=== PATIENT | male | born 1945 | race Hispanic/Latino ===

== ENCOUNTER 2018-11-18 19:10 | Emergency (ER) | payer MEDICARE, BC ==
[2018-11-18 20:30] VITALS: BMI 23.7
--- NOTE | 2018-11-18 20:30 | ED PDOC ---
Arrival/HPI - General Time Seen by Provider: 11/18/18 19:42 Historian: Patient - History of Present Illness Narrative History of Present Illness (Text): 11/18/18 20:29 73 year old male smoker, with no significant past medical history, presents to the emergency department with abscess-like wound to the left leg, for 1 week. Patient informs he is unsure how it started, but has been gardening recently. Patient denies any discharge from the wound. Patient states it is painful to touch. pt denies any pain with ROM of knee. Patient denies any fevers, chills, headache, dizziness, chest pain, shortness of breath, dyspnea on exertion, cough, abdominal pain, nausea, vomiting, diarrhea, back pain, neck pain, or any other complaints. PMD: Dr. Kwesi Stern Time/Duration: 1 week Symptom Onset: Gradual Symptom Course: Unchanged Quality: Aching Severity Level: Mild Activities at Onset: Light Context: Home Past Medical History - Provider Review Nursing Documentation Reviewed: Yes - Travel History Have you recently traveled outside [place] w/in the past 3 mons?: No - Infectious Disease Hx of Infectious Diseases: MRSA - Cardiac Hx Pacemaker: No - Neurological Hx Paralysis: No - Hematological/Oncological Hx Blood Transfusions: No Hx Blood Transfusion Reaction: No - Musculoskeletal/Rheumatological Hx Musculoskeletal Disorders: No - Psychiatric Hx Emotional Abuse: No Hx Physical Abuse: No Hx Substance Use: No - Anesthesia Hx Anesthesia Reactions: No Hx Malignant Hyperthermia: No - Suicidal Assessment Feels Threatened In Home Enviroment: No Family/Social History - Physician Review Nursing Documentation Reviewed: Yes Family/Social History: No Known Family HX Smoking Status: Heavy Smoker > 10 Cigarettes Daily Hx Alcohol Use: No Hx Substance Use: No Allergies/Home Meds Allergies/Adverse Reactions: Allergies No Known Allergies Allergy (Verified 11/18/18 20:30) Home Medications: Home Meds Medication Instructions Recorded Confirmed Esomeprazole Magnesium [Nexium] 40 mg PO DAILY 11/13/11 11/13/11 Fish Oil 1,000 iu PO DAILY 11/13/11 11/13/11 Simvastatin 40 mg PO DAILY 11/13/11 11/13/11 Temazepam 15 mg PO HS 11/13/11 11/13/11 Zolpidem Tartrate [Zolpidem] 10 mg PO HS 11/13/11 11/13/11 Review of Systems - Physician Review All systems were reviewed & negative as marked: Yes - Review of Systems Constitutional: absent: Fatigue, Fevers, Night Sweats Respiratory: absent: SOB, Cough Cardiovascular: absent: Chest Pain, Palpitations, YUAN Gastrointestinal: absent: Abdominal Pain, Diarrhea, Nausea, Vomiting Musculoskeletal: absent: Back Pain, Neck Pain, Joint Swelling Skin: Abscess, Cellulitis. absent: Pruritis Neurological: absent: Headache, Dizziness Psychiatric: absent: Anxiety, Depression Physical Exam Vital Signs Reviewed: Yes Temperature: Afebrile Blood Pressure: Normal Pulse: Regular Respiratory Rate: Normal Appearance: Positive for: Well-Appearing, Non-Toxic, Comfortable Pain Distress: None Mental Status: Positive for: Alert and Oriented X 3 - Systems Exam Head: Present: Atraumatic Conjunctiva: Present: Normal Mouth: Present: Moist Mucous Membranes Neck: Present: Normal Range of Motion Respiratory/Chest: Present: Clear to Auscultation, Good Air Exchange. No: Respiratory Distress, Accessory Muscle Use Cardiovascular: Present: Regular Rate and Rhythm, Normal S1, S2. No: Murmurs Back: Present: Normal Inspection Upper Extremity: Present: Normal Inspection. No: Cyanosis, Edema Lower Extremity: Present: Normal Inspection, Normal ROM (Full ROM to the Left knee and ankle), Tenderness (Some localized swelling and tenderness to the area of abscess. + induration, no fluctuance. ), Swelling, Erythema, Neurovascularly Intact, Capillary Refill < 2 s. No: Edema, Deformity Neurological: Present: Speech Normal Skin: Present: Warm, Dry, Erythematous, Abscess (central scab with approx 5cm of surrounding erythema, just inferior and lateral to the left knee; Small amount of purulent discharge to the central crusting area, no fluctuance) Psychiatric: Present: Alert, Oriented x 3 Medical Decision Making ED Course and Treatment: 11/18/18 20:45 Impression: 73 year old male presents with abscess-like wound. Plan: -- CMP -- CBC -- Keflex -- Bactrim -- Reassess and disposition Prior Visits: Notes and results from previous visits were reviewed. Progress Notes: 11/18/18 20:47 Pt refusing to have blood work and remain in the hospital for abscess/cellulitis. area of erythema outlined with marking pain. pt started on bactrim and keflex. pt was advised that he he should remain in the hospital for blood work and IV antibiotics. Patient has refused to stay in the hospital. Patient has refused to have blood work. I advised the patient of risk of disability or worsening of symptoms including loss of limb and sepsis. Patient has been advised to not leave the emergency room but has decided to go AGAINST MEDICAL ADVICE. The patient possesses capacity to make decisions and has voiced understanding to all my warnings of potential worsening of the condition for which medical care was sought. I have discussed all known and potential risks and consequences to the patient leaving AGAINST MEDICAL ADVICE. Patient is leaving against medical advise. AMA form signed. witness by JESSICA Bateman. Patient was advised immediate return if he wishes to continue his care. He was advised immediate return if erythema extends beyond the marking pen outline. Patient was advised to take antibiotics as prescribed follow-up with a primary care physician and surgeon within the next 2 days. Impression: Abscess, cellulitis of leg Patient has left the hospital AGAINST MEDICAL ADVICE. Return if you wish to continue your care Bactrim 1 tablet twice daily x7 days Keflex 1 capsule 4 times daily x7 days Apply warm compresses frequently Follow up with primary care physician within the next 2 days. follow up with the surgeon within the next 2 days. Return immediately if symptoms worsen persist or if new symptoms develop: high fevers, increasing pain, increasing redness, swelling, or if any other concerning symptoms develop. - Scribe Statement The provider has reviewed the documentation as recorded by the Scribe Len Huddleston All medical record entries made by the Scribe were at my direction and personally dictated by me. I have reviewed the chart and agree that the record accurately reflects my personal performance of the history, physical exam, medical decision making, and the department course for this patient. I have also personally directed, reviewed, and agree with the discharge instructions and disposition. Disposition/Present on Arrival - Present on Arrival Any Indicators Present on Arrival: No History of DVT/PE: No History of Uncontrolled Diabetes: No Urinary Catheter: No History of Decub. Ulcer: No - Disposition Have Diagnosis and Disposition been Completed?: Yes Diagnosis: Abscess of leg, Cellulitis Disposition: AGAINST MEDICAL ADVICE Disposition Time: 20:47 Patient Plan: Other (AMA) Patient Problems: Current Active Problems Problem Status Onset Abscess of leg Acute Cellulitis Acute Condition: UNKNOWN Discharge Instructions (ExitCare): Cellulitis (ED), Skin Abscess, Cellulitis (Skin Infection), Adult (DC) Additional Instructions: Return if you wish to continue your care Bactrim 1 tablet twice daily x7 days Keflex 1 capsule 4 times daily x7 days Apply warm compresses frequently Follow up with primary care physician within the next 2 days. follow up with the surgeon within the next 2 days. Return immediately if symptoms worsen persist or if new symptoms develop: high fevers, increasing pain, increasing redness, swelling, or if any other concerning symptoms develop. Prescriptions: Cephalexin [Keflex] 500 mg PO QID #28 capsule Mupirocin 2% Oint UD [Bactroban Ointment] 1 applic EXT TID #1 ea Sulfamethoxazole/Trimethoprim [Bactrim DS 800 mg-160 mg] 1 tab PO BID #14 tab Referrals: Jake Stern MD [Family Provider] - Follow up with primary Moisés Delacruz MD [Staff Provider] - Follow up with primary Forms: [facility] (Maori), WORK NOTE
[2018-11-18] MEDS ORDERED: Tmp-Smz 800 mg-160 mg DS Tab PO STA (20:34)
[2018-11-18 20:40] VITALS: BP 106/42; PULSE 89; RESP 18; O2SAT 97
[2018-11-18 20:44] VITALS: TEMP 97.6
== END 2018-11-18 21:24 | disposition left against medical advice (07) ==
LOC: ED 19:10
DX: L02.416 Cutaneous abscess of left lower limb (principal); L03.116 Cellulitis of left lower limb

== ENCOUNTER 2018-11-19 14:13 | Inpatient (IN) | payer MEDICARE, BC ==
[2018-11-19 14:16] VITALS: BMI 26.6
--- NOTE | 2018-11-19 15:39 | ED PDOC ---
Arrival/HPI - General Chief Complaint: Lower Extremity Problem/Injury Time Seen by Provider: 11/19/18 14:26 Historian: Patient - History of Present Illness Narrative History of Present Illness (Text): 11/19/18 15:39 A 73 year old male, whose past medical history includes MRSA and COPD, presents to the emergency department complaining of left lower leg swelling and redness for approximately 8 days. Patient reports he was seen here last night. Notes he was seen by Dr. Stern today and was instructed to be evaluated in the ER for possible admission. Patient notes also experiencing associated bone pain near the redness on left leg, however denies any fever,calf pain, or any other complaints at this time. PMD: Dr. Stern Past Medical History - Provider Review Nursing Documentation Reviewed: Yes - Infectious Disease Hx of Infectious Diseases: MRSA - Cardiac Hx Pacemaker: No - Pulmonary Hx Chronic Obstructive Pulmonary Disease (COPD): Yes - Neurological Hx Paralysis: No - Hematological/Oncological Hx Blood Transfusions: No Hx Blood Transfusion Reaction: No - Musculoskeletal/Rheumatological Hx Musculoskeletal Disorders: No - Psychiatric Hx Emotional Abuse: No Hx Physical Abuse: No Hx Substance Use: No - Surgical History Other/Comment: sx on hemorroid. hx MRSA - Anesthesia Hx Anesthesia: Yes Hx Anesthesia Reactions: No Hx Malignant Hyperthermia: No - Suicidal Assessment Feels Threatened In Home Enviroment: No Family/Social History - Physician Review Nursing Documentation Reviewed: Yes Family/Social History: No Known Family HX Smoking Status: Heavy Smoker > 10 Cigarettes Daily Hx Alcohol Use: No Hx Substance Use: No Allergies/Home Meds Allergies/Adverse Reactions: Allergies No Known Allergies Allergy (Verified 11/19/18 15:19) Home Medications: Home Meds Medication Instructions Recorded Confirmed Esomeprazole Magnesium [Nexium] 40 mg PO DAILY 11/13/11 11/13/11 Fish Oil 1,000 iu PO DAILY 11/13/11 11/13/11 Simvastatin 40 mg PO DAILY 11/13/11 11/13/11 Temazepam 15 mg PO HS 11/13/11 11/13/11 Zolpidem Tartrate [Zolpidem] 10 mg PO HS 11/13/11 11/13/11 Review of Systems - Physician Review All systems were reviewed & negative as marked: Yes - Review of Systems Constitutional: absent: Fevers Musculoskeletal: absent: Other (no calf pain) Skin: Other (swelling and redness to left lower leg) Physical Exam - Physical Exam Narrative Physical Exam (Text): Gen: VS reviewed, alert, well developed, well nourished, nontoxic, mild distress. ENT: normal pharynx. Eye: EOMI, PERRL. Neck: no JVD, supple, no adenopathy. CV: regular rate, regular rhythm, no rubs, no murmur, no gallops, S1, S2, pulses equal and strong. Pulm: no distress, clear to auscultation, no wheeze, no rhonchi, breath sounds equal, no rales. Abd: soft, nontender, no guarding, no rebound, no rigidity, normal bowel sounds. Ext: abscess to left lateral proximal tibia with surrounding cellulitic skin changes, mild tenderness and mild edema of left lower leg. Skin: good color, no rash, no cyanosis. Psych: responds appropriately to questions, normal affect. Neuro: oriented x 3, CN2-12 intact grossly, motor intact, sensation intact. Vital Signs Temp Pulse Resp BP Pulse Ox 11/19/18 14:15 98.4 F 95 H 18 123/82 97 Medical Decision Making ED Course and Treatment: 11/19/18 15:45 Impression: 73 year old male with left lower leg swelling and redness. Plan: -- EKG -- Labs -- Lower Extremity Ultrasound -- Venous Blood Gas -- Tibia Fibula Left X-Ray -- Blood Culture -- Vancomycin -- Reassess and disposition Prior Visits: Notes and results from previous visits were reviewed. Patient was last seen here in the emergency department on 11/18/2018 for abscess-like wound to the left leg. Patient left against medical advice. Progress Notes: 11/19/18 18:[address] ren, patient to be admitted for abscess and cellulitis of the left leg. with the hx mrsa, it would be prudent to admit for iv abx and consider surgical consultation for potential I&D. patient remained stable throughout ED course. - EKG Interpretation EKG Interpretation (Text): 11/19/18 16:49 ekg my read: nsr at 85 bpm, nml qrs, nml axis, no acute sttw abn Interpreted by ED Physician: Yes - Scribe Statement The provider has reviewed the documentation as recorded by the Miguel Ángel Clemons Provider Scribe Attestation: All medical record entries made by the Miguel Ángel were at my direction and personally dictated by me. I have reviewed the chart and agree that the record accurately reflects my personal performance of the history, physical exam, medical decision making, and the department course for this patient. I have also personally directed, reviewed, and agree with the discharge instructions and disposition. Disposition/Present on Arrival - Present on Arrival Any Indicators Present on Arrival: No History of DVT/PE: No History of Uncontrolled Diabetes: No Urinary Catheter: No History of Decub. Ulcer: No History Surgical Site Infection Following: None - Disposition Have Diagnosis and Disposition been Completed?: Yes Diagnosis: Cellulitis and abscess of left leg Disposition: HOSPITALIZED Disposition Time: 15:41 Patient Plan: Admission Condition: STABLE Discharge Instructions (ExitCare): Cellulitis (ED) Referrals: PCP,NO [Primary Care Provider] - Follow up with primary Forms: [facility] (Burmese)
[2018-11-19] MEDS ORDERED: Vancomycin 500 mg Inj IVPB STA (15:43)
[2018-11-19 16:36] LABS: VENOUS BLOOD GAS BASE EXCESS 1.6 mmol/L (0.0-2.0); VENOUS BLOOD GAS PO2 48 mm/Hg (30-55); VENOUS BLOOD PH 7.31 (7.32-7.43)
[2018-11-19 16:37] LABS: BASO # 0.04 K/mm3 (0.0-2.0); BASO % 0.4 % (0.0-3.0); EOS # 0.2 (0.0-0.7); EOS % 1.9 % (1.5-5.0); HEMOGLOBIN 13.4 g/dL (14.0-18.0); LYMPH % 20.3 % (22.0-35.0); MEAN CORPUSCULAR HGB CONC 33.7 g/dl (31.0-37.0); MEAN PLATELET VOLUME 9.3 fl (7.0-11.0); MONO # 0.6 (0.1-0.6); MONO % 5.7 % (1.0-6.0); RBC 4.47 10^6/uL (3.5-6.1); RED CELL DISTRIBUTION WIDTH 12.6 % (11.5-14.5); WHITE BLOOD COUNT 10.1 10^3/uL (4.5-11.0)
[2018-11-19 16:40] LABS: ALB/GLOB RATIO 1.2 (1.1-1.8); ALBUMIN 3.9 g/dL (3.0-4.8); ALT/SGPT 20 U/L (7-56); AST/SGOT 22 U/L (17-59); BLOOD UREA NITROGEN 14 mg/dL (7-21); CALCIUM 9.4 mg/dL (8.4-10.5); GFR NON-AFRICAN AMERICAN > 60
--- NOTE | 2018-11-19 18:10 | US ---
PROCEDURE: Left lower extremity venous US HISTORY: Leg pain and swelling. Evaluate for DVT. PHYSICIAN(S): Len Scott MD. TECHNIQUE: Duplex sonography and color-flow Doppler with graded compression were used to evaluate the deep venous system of the left lower extremity. FINDINGS: The visualized deep venous system of the left lower extremity is sonographically normal and compressible. Normal wave forms and augmentation are seen. There is no sonographic evidence for deep venous thrombosis in the visualized segments of the left lower extremity. IMPRESSION: 1. No sonographic evidence for deep venous thrombosis in the visualized segments of the left lower extremity.
--- NOTE | 2018-11-19 19:09 | CARD ---
APPROVED REPORT Date of service: 11/19/2018 EKG Measurement Heart [id number] <Conclusion> Normal sinus rhythm Normal ECG
--- NOTE | 2018-11-19 21:21 | CP.PCM.CON ---
History of Present Illness - History of Present Illness History of Present Illness: General Surgery Dr. Delacruz 73 y/o M w/ PMHx COPD, BPH presents to the ED at the direction of his PMD, Dr. Barriga. Pt has a wound on his LLE x1wk. Pt presented to the ED yesterday, 11/18, for the same wound. At that time, pt did not want to be admitted and left the ED for follow up w/ PMD. Pt was seen by Dr. Barriga today and instructed the pt to come to the ED for further eval/treatment. Pt has never before had similar wounds/lesions. Pt is unaware of any recent trauma to the area. Pt admits to pain in LLE from knee to ankle, pain worse on anterior aspect. Pt denies F/C, CP, SOB, N/V. PMHx: see above Meds: reviewed in chart NKDA PSHx: RIHR, EGD, face lesion removal SHx: (+)tobacco, (-)Drug/EtOH FHx: noncontributory Review of Systems - Review of Systems All systems: reviewed and no additional remarkable complaints except (see HPI) Past Patient History - Infectious Disease Hx of Infectious Diseases: MRSA - Past Social History Smoking Status: Heavy Smoker > 10 Cigarettes Daily - CARDIAC Hx Pacemaker: No - PULMONARY Hx Chronic Obstructive Pulmonary Disease (COPD): Yes - NEUROLOGICAL Hx Paralysis: No - HEMATOLOGICAL/ONCOLOGICAL Hx Blood Transfusions: No Hx Blood Transfusion Reaction: No - INTEGUMENTARY Hx Dermatological Problems: Yes (PAST) Other/Comment: MRSA to L face in 2016, Patient received antibiotic therapy in nose and to L face - MUSCULOSKELETAL/RHEUMATOLOGICAL Hx Musculoskeletal Disorders: No - PSYCHIATRIC Hx Emotional Abuse: No Hx Physical Abuse: No Hx Substance Use: No - SURGICAL HISTORY Other/Comment: sx on hemorroid. hx MRSA - ANESTHESIA Hx Anesthesia: Yes Hx Anesthesia Reactions: No Hx Malignant Hyperthermia: No Meds Allergies/Adverse Reactions: Allergies Allergy/AdvReac Type Severity Reaction Status Date / Time No Known Allergies Allergy Verified 11/19/18 15:19 Physical Exam - Constitutional Appears: Non-toxic, No Acute Distress - Head Exam Head Exam: NORMAL INSPECTION - Eye Exam Eye Exam: Normal appearance - ENT Exam ENT Exam: Mucous Membranes Moist - Respiratory Exam Respiratory Exam: NORMAL BREATHING PATTERN. absent: Accessory Muscle Use, Respiratory Distress - Cardiovascular Exam Cardiovascular Exam: absent: Bradycardia, Tachycardia - GI/Abdominal Exam GI & Abdominal Exam: Soft. absent: Distended, Tenderness - Extremities Exam Additional comments: LLE w/ 2-3+ pitting edema 3cm area erythema w/ 1cm diameter crusted lesion no fluctuance palpable no drainage notes - Neurological Exam Neurological exam: Alert, Oriented x3 - Psychiatric Exam Psychiatric exam: Normal Affect, Normal Mood - Skin Skin Exam: Dry, Intact, Warm Results - Vital Signs Recent Vital Signs: Last Vital Signs Temp 98.4 F 11/19/18 14:15 Pulse 95 H 11/19/18 14:15 Resp 18 11/19/18 14:15 BP 123/82 11/19/18 14:15 Pulse Ox 97 11/19/18 14:15 - Labs Result Diagrams: 11/19/18 16:25 11/19/18 16:25 Labs: Laboratory Results - last 24 hr 11/19/18 11/19/18 11/19/18 16:25 16:25 16:25 WBC 10.1 RBC 4.47 Hgb 13.4 L Hct 39.8 L MCV 89.0 MCH 30.0 MCHC 33.7 RDW 12.6 Plt Count 315 MPV 9.3 Neut % (Auto) 71.7 H Lymph % (Auto) 20.3 L Hendry % (Auto) 5.7 Eos % (Auto) 1.9 Baso % (Auto) 0.4 Lymph # (Auto) 2.0 Hendry # (Auto) 0.6 Eos # (Auto) 0.2 Baso # (Auto) 0.04 Absolute Neuts (auto) 7.21 H pO2 48 VBG pH 7.31 L VBG pCO2 58.0 VBG HCO3 29.2 H VBG Total CO2 31.0 H VBG O2 Sat (Calc) 85.4 H VBG Base Excess 1.6 VBG Potassium 4.1 Sodium 141.0 142 Chloride 107.0 107 Glucose 98 Lactate 1.8 FiO2 21.0 Potassium 4.0 Carbon Dioxide 27 Anion Gap 12 BUN 14 Creatinine 1.0 Est GFR ( Amer) > 60 Est GFR (Non-Af Amer) > 60 Random Glucose 98 Calcium 9.4 Total Bilirubin 0.2 AST 22 ALT 20 Alkaline Phosphatase 73 Total Protein 7.1 Albumin 3.9 Globulin 3.2 Albumin/Globulin Ratio 1.2 Venous Blood Potassium 4.1 - Imaging and Cardiology Venous US Status: Image reviewed by me, Report reviewed by me LLE x-ray Status: Image reviewed by me Assessment & Plan - Assessment and Plan (Free Text) Assessment: 73 y/o M w/ LLE wound and surrounding cellulitis Plan: - IV abx - warm compresses - bacitracin - pain management - possible future I&D if fluctuance develops - monitor erythema for spreading Will discuss w/ Dr. Jayme Purdy PGY3
[2018-11-19] MEDS ORDERED: Vancomycin 1gm in NS 250ml 1 GM/250 ML BAG IVPB SCH ×2 (21:30→21:33)
[2018-11-20] MEDS: Piperacill/Tazo 4.5gm in NS 4.5 GM/100 ML BAG IVPB SCH ×4 (00:40→22:33)
[2018-11-20] MEDS: Vancomycin 1gm in NS 250ml 1 GM/250 ML BAG IVPB SCH ×2 (05:34→17:26)
--- NOTE | 2018-11-20 07:57 | CP.PCM.PN ---
Subjective - Date & Time of Evaluation Date of Evaluation: 11/20/18 Time of Evaluation: 06:45 - Subjective Subjective: General Surgery Dr. Delacruz Pt seen and examined @bedside. No acute events overnight. pt has no complaints this AM. LLE pain unchanged. denies F/C, N/V, CP, SOB. Objective - Vital Signs/Intake and Output Vital Signs (last 24 hours): Temp Pulse Resp BP Pulse Ox 97.9 F 88 20 132/60 97 11/19/18 22:00 11/19/18 22:00 11/20/18 01:48 11/19/18 22:00 11/19/18 22:00 - Medications Medications: Current Medications Acetaminophen (Tylenol 325mg Tab) 650 mg PO Q4H PRN PRN Reason: Pain, Mild (1-3) Bacitracin (Bacitracin) 1 gm TOP BID JOHN Vancomycin HCl (Vancomycin 1gm) 1 gm in 250 mls @ 167 mls/hr IVPB 0600,1800 JOHN; Protocol Last Admin: 11/20/18 05:34 Dose: 167 mls/hr Piperacillin Sod/Tazobactam Sod (Zosyn 4.5 Gm In Ns 100ml) 4.5 gm in 100 mls @ 25 mls/hr IVPB Q8 JOHN; Protocol Stop: 11/28/18 23:01 Last Admin: 11/20/18 05:34 Dose: 25 mls/hr Nicotine (Nicoderm Cq) 1 patch TD DAILY JOHN Last Admin: 11/20/18 00:05 Dose: 1 patch - Labs Labs: 11/19/18 16:25 11/19/18 16:25 - Constitutional Appears: Non-toxic, No Acute Distress - Head Exam Head Exam: NORMAL INSPECTION - Eye Exam Eye Exam: Normal appearance - ENT Exam ENT Exam: Mucous Membranes Moist - Respiratory Exam Respiratory Exam: NORMAL BREATHING PATTERN. absent: Accessory Muscle Use, Respiratory Distress - Cardiovascular Exam Cardiovascular Exam: absent: Bradycardia, Tachycardia - GI/Abdominal Exam GI & Abdominal Exam: Soft. absent: Distended - Extremities Exam Additional comments: Grossly unchanged: LLE w/ 2+ pitting edema 3cm area erythema w/ 1cm diameter central lesion no palpable fluctuance no drainage - Neurological Exam Neurological Exam: Alert, Awake, Oriented x3 - Psychiatric Exam Psychiatric exam: Normal Affect, Normal Mood - Skin Skin Exam: Dry, Intact, Warm Assessment and Plan - Assessment and Plan (Free Text) Assessment: 73 y/o M w/ LLE balderas wound and surrounding cellulitis Plan: - cont IV abx - warm compresses Q2 while awake - bacitracin Daily - keep leg elevated - possible future I&D if fluctuance develops - monitor erythema for spreading Pt discussed w/ Dr. Jayme Purdy PGY3
--- NOTE | 2018-11-20 08:40 | RAD ---
Date of service: 11/19/2018 PROCEDURE: Radiographs of the left tibia and fibula. HISTORY: proximal anterior tibia pain COMPARISON: None available. TECHNIQUE: Frontal and lateral views obtained. 2 views obtained. FINDINGS: BONES: No fracture or destructive lesion. Calcifications/calcification lateral to the lateral femoral condyle which may be related to sequela of prior trauma. JOINT SPACES: Unremarkable. OTHER FINDINGS: None. IMPRESSION: No demonstrated fracture or dislocation.
[2018-11-20] MEDS: Bacitracin Ointment 30 GM TUBE TOP SCH ×2 (10:10→17:25)
[2018-11-20 21:57] VITALS: RESP 18
--- NOTE | 2018-11-21 00:13 | HP ---
DATE OF EXAM: 11/20/2018 HISTORY OF PRESENT ILLNESS: The patient is a 73 years old white male who came to emergency room on 11/18/2018 because of increasing redness and a lump that was growing on his left leg that started 1 week ago. 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 He came to emergency, he was advised on 11/18/2018 to get admitted for IV antibiotic, but he left. He went to see Dr. Stern the next day who advised him to go to emergency room for IV antibiotics. Denies any fever or chills. He does complain of pain to the whole area including his knee. PAST MEDICAL HISTORY: Significant for; 1. COPD. 2. History of benign prostatic hypertrophy. ALLERGIES: HE IS NOT ALLERGIC TO ANY MEDICATION. MEDICATIONS: At home; he is on Ambien and temazepam as needed. He was on Bactroban. He is on simvastatin, Nexium and he was given Keflex. SOCIAL HISTORY: He lives with his . Used to be a heavy smoker. He still smokes almost 10 cigarettes a day. PHYSICAL EXAMINATION: GENERAL: He is awake and alert, able to communicate. VITAL SIGNS: He is afebrile. Pulse 81, respiration 20 and blood pressure 118/76. LUNGS: Bilateral fair airflow. No rhonchi or crackle. HEART: S1 and S2, audible. ABDOMEN: Soft and nontender. No rebound. No guarding. NEUROLOGIC: The patient is awake and alert, able to communicate. Ambulatory. EXTREMITIES: On his left upper leg, he has erythema of 10 to 15 cm that seemed to be regressing with central flat lesion. No fluctuation is noted. LABORATORY DATA: WBC is 10, hemoglobin 13, hematocrit 39 and platelets 315. Chemistry; sodium 142, potassium 4, chloride 107, CO2 of 27, BUN 14, creatinine 1, and blood sugar 98. LFT's are within normal limits. He had x-ray of the tib-fib done that is negative. He has leg Doppler that is unremarkable. ASSESSMENT: 1. Left leg cellulitis. 2. History of chronic obstructive pulmonary disease. 3. Hyperlipidemia. PLAN: Currently, the patient is on vancomycin and Zosyn. Analgesic as needed. He is being seen by Surgical team and ID. Komal Sorto MD [facility] # [id number]
--- NOTE | 2018-11-21 03:38 | CON ---
DATE: 11/20/2018 ROOM NUMBER: The patient was seen earlier today in 573, bed 1. CHIEF COMPLAINT: Right leg infection x1 week duration. HISTORY OF PRESENT ILLNESS: This is a 73-year-old male with past medical history significant for chronic obstructive lung disease, long-time smoker who continues to smoke, history of MRSA in the past, history of arthritis, and history of hemorrhoidectomy 15 years ago, who is admitted now with left leg skin infection. PAST MEDICAL HISTORY: Significant for facial MRSA infection, chronic obstructive lung disease, and arthritis. PAST SURGICAL HISTORY: Significant for hemorrhoidectomy 15 years ago. ALLERGIES: THE PATIENT HAS NO KNOWN ALLERGIES. REVIEW OF SYSTEMS: Reveals no fevers, no chills. No nausea, no vomiting. No abdominal pain, diarrhea. A 12-point review of systems performed. MEDICATIONS AT HOME: Reviewed. The patient had been on Bactrim at one time and Keflex. PHYSICAL EXAMINATION: VITAL SIGNS: The patient is in bed with a temperature of 98, blood pressure is 130/60, respiratory rate of 20, and a heart rate of 95. HEENT: Unremarkable. NECK: Supple. LUNGS: Have decreased breath sounds: HEART: Normal S1, S2. ABDOMEN: Soft, nontender. EXTREMITIES: Examination of the leg reveals the patient's left lower extremity has erythema with central abscess. LABORATORY EXAMINATION: Reveals a white count of 10,000. Chemistries are noted and reviewed. Microbiology is pending. Review of orders reveals that the patient had blood and wound cultures and was started on vancomycin and Zosyn. ASSESSMENT AND PLAN: A 73-year-old male with a left leg cellulitis with an abscess formation, most likely consistent with an Methicillin-resistant Staphylococcus aureus. We would recommend incision and drainage and complete with p.o. Bactrim upon discharge after incision and drainage. Double strength Bactrim 1 tablet p.o. b.i.d. times 3-5 days. Braulio Mitchell MD
[2018-11-21] MEDS: Piperacill/Tazo 4.5gm in NS 4.5 GM/100 ML BAG IVPB SCH (05:56)
[2018-11-21] MEDS: Vancomycin 1gm in NS 250ml 1 GM/250 ML BAG IVPB SCH (05:56)
--- NOTE | 2018-11-21 06:19 | CP.PCM.PN ---
Subjective - Date & Time of Evaluation Date of Evaluation: 11/21/18 Time of Evaluation: 07:05 - Subjective Subjective: General Surgery Pt seen and examined. No acute issues overnight. LLE pain improving. No new complaints. Afebrile. Scab came off and had some small amount of bleeding at site Objective - Vital Signs/Intake and Output Vital Signs (last 24 hours): Temp Pulse Resp BP Pulse Ox 98.2 F 84 18 130/70 93 L 11/20/18 21:56 11/20/18 21:56 11/20/18 21:56 11/20/18 21:56 11/20/18 21:56 - Medications Medications: Current Medications Acetaminophen (Tylenol 325mg Tab) 650 mg PO Q4H PRN PRN Reason: Pain, Mild (1-3) Bacitracin (Bacitracin) 1 gm TOP BID [facility] Last Admin: 11/20/18 17:25 Dose: 1 applic Vancomycin HCl (Vancomycin 1gm) 1 gm in 250 mls @ 167 mls/hr IVPB 0600,1800 JOHN; Protocol Last Admin: 11/21/18 05:56 Dose: 167 mls/hr Piperacillin Sod/Tazobactam Sod (Zosyn 4.5 Gm In Ns 100ml) 4.5 gm in 100 mls @ 25 mls/hr IVPB Q8 [facility]; Protocol Stop: 11/28/18 23:01 Last Admin: 11/21/18 05:56 Dose: 25 mls/hr Nicotine (Nicoderm Cq) 1 patch TD DAILY [facility] Last Admin: 11/20/18 10:10 Dose: 1 patch - Labs Labs: 11/19/18 16:25 11/19/18 16:25 - Constitutional Appears: Non-toxic, No Acute Distress - Head Exam Head Exam: ATRAUMATIC, NORMOCEPHALIC - Eye Exam Eye Exam: EOMI. absent: Scleral icterus - Respiratory Exam Respiratory Exam: NORMAL BREATHING PATTERN. absent: Respiratory Distress - GI/Abdominal Exam GI & Abdominal Exam: Soft. absent: Distended, Tenderness - Extremities Exam Extremities Exam: Normal Capillary Refill. absent: Pedal Edema Additional comments: LLE: 3cm area erythema w/ 1cm diameter central lesion, slight decrease no palpable fluctuance no drainage - Neurological Exam Neurological Exam: Alert, Awake, Oriented x3 - Skin Skin Exam: Dry, Warm Assessment and Plan - Assessment and Plan (Free Text) Assessment: 73M with LLE balderas wound and surrounding cellulitis Plan: - cont IV abx per ID, convert to PO when able - warm compresses Q2 while awake - Mupirocin BID - keep leg elevated - monitor erythema for spreading D/W Dr. Jayme Cao PGY4
[2018-11-21 08:38] VITALS: BP 128/78; PULSE 79; TEMP 97.8; O2SAT 95
[2018-11-21] MEDS ORDERED: Mupirocin 2% Ointment 15 GM TUBE TOP SCH (10:00)
--- NOTE | 2018-11-21 13:40 | PN ---
DATE: 11/21/2018 ROOM NUMBER: The patient seen this morning in 573, bed 1. SUBJECTIVE: He is walking around and doing well. He wants to be discharged. He never had any fevers in the office. PHYSICAL EXAMINATION: VITAL SIGNS: Temperature is 97, heart rate of 90, respiratory rate of 20, blood pressure is 104/76. HEENT: Unremarkable. NECK: Supple. LUNGS: Have decreased breath sounds: HEART: Normal S1, S2. ABDOMEN: Soft. EXTREMITIES: Examination of the leg, he still has a small collection of pus, pressing the collection, the pus oozed out. Cultures were sent this morning. LABORATORY DATA: Laboratory examination reveals a white count of 10,000 and the chemistries reveals a creatinine 1 and the cultures from 19/11/2018 shows a gram positive cocci and blood cultures are negative. The patient was on Bactrim and Keflex as outpatient. Dr. Sorto's history and physical examinations reviewed. ASSESSMENT AND PLAN: A 73-year-old male with left leg cellulitis and abscess formation, probable methicillin-resistant Staphylococcus aureus. Since the patient was on Bactrim, may use p.o. doxycycline if Bactrim is not enough. She is most likely probably still sensitive. We will discontinue the vancomycin, discontinue the Zosyn, and treat with doxycycline with 100 mg p.o. b.i.d. x5 days. Case discussed with Dr. Sorto. The patient for possible discharge. Braulio Mitchell MD
--- NOTE | 2018-11-21 23:10 | DS ---
HISTORY OF PRESENT ILLNESS: The patient is a 73-year-old who came to emergency room because of his left balderas cellulitis and heavily crested central lesion had I and D done, scanty fluid was drained and was sent to the lab. The patient was on vancomycin and Zosyn. His erythema seems to be improving, anxious to go home. No fever. No chills. No nausea or vomiting. No diarrhea. PHYSICAL EXAMINATION: VITAL SIGNS: Afebrile. Pulse 79, respirations 18, blood pressure 128/78. LUNGS: Bilateral fair airflow. No rhonchi or crackle. HEART: S1 and S2, audible. ABDOMEN: Soft and nontender. No rebound. No guarding. NEUROLOGIC: The patient is awake and alert, able to communicate. Ambulatory. His left balderas erythema has regressed with scanty discharge from the central lesion. ASSESSMENT: 1. Left balderas cellulitis. 2. History of chronic obstructive pulmonary disease. 3. History of methicillin-resistant Staphylococcus aureus in the past. PLAN: The patient will be discharge today. I will give him Bactroban and he has been discharged on doxycycline 100 mg twice a day for a week as per ID recommendation. He will follow with Dr. Stern to followup how he is improving. Komal Sorto MD
== END 2018-11-21 14:32 | disposition home or self-care (01) | DRG 603 ==
LOC: ED 14:13 → ERH 18:37 → 5RSO 20:58
PROVIDERS: ADMIT Internal Medicine Nephrology; ATTEND Internal Medicine Nephrology
DX: L03.116 Cellulitis of left lower limb (principal); L02.416 Cutaneous abscess of left lower limb; Z86.14 Personal history of Methicillin resistant Staphylococcus aureus infection; J44.9 Chronic obstructive pulmonary disease, unspecified; N40.0 Benign prostatic hyperplasia without lower urinary tract symptoms; E78.5 Hyperlipidemia, unspecified; F17.210 Nicotine dependence, cigarettes, uncomplicated